=== PATIENT | female | born 1990 | race African-American/Black ===

== ENCOUNTER 2017-08-31 08:40 | Emergency (ER) | payer OTHER ==
[~2017-08-31] VITALS: Ht 165.1 cm; Wt 63.5 kg
[2017-08-31] MEDS ORDERED: NKM (08:56)
[2017-08-31 08:59] VITALS: BP 124/84
[2017-08-31 09:30] LABS: APPEARANCE,URINE CLEAR; BILIRUBIN, URINE NEGATIVE (NEGATIVE); COLOR,URINE PALE YELLOW; GLUCOSE, URINE (UA) NEGATIVE (NEGATIVE); KETONES,URINE NEGATIVE (NEGATIVE); LEUKOCYTE ESTERASE ,URINE 1+ (NEGATIVE); NITRITE,URINE NEGATIVE (NEGATIVE); PH,URINE 6 (4.5-8.0); PROTEIN,URINE NEGATIVE (NEGATIVE); UROBILINOGEN,URINE NORMAL MG/DL (0.0-1.0)
--- NOTE | 2017-08-31 09:48 | Emergency Room Report ---
History of Present Illness General Chief Complaint: Abdominal Pain Source: Patient Present Illness HPI [id number] who was on 08/18 was 14 weeks . Was evaluated at outside [facility], told she was having miscarriage. Intermittent passage of clots since. Currently mild vaginal bleeding and discomfort. Has not followed up with PMD or OB since 08/18 ER visit. Denies fever/chills, nausea/vomiting. beta hc at that time as well. Allergies: Coded Allergies: No Known Allergies (Unverified , 08/31/17) Patient History Past Medical History: none Past Surgical History: none Pertinent Family History: none Last Menstrual Period: 05/14/2017 Now: No : 3 Para: 2 Immunizations: UTD Reviewed Nursing Documentation: PMH: Agreed, PSxH: Agreed Nursing Documentation-PMH Past Medical History: No Stated History Review of Systems All Other Systems: negative except mentioned in HPI Physical Exam Vital Signs Date Time Temp Pulse Resp B/P (MAP) Pulse Ox O2 Delivery O2 Flow Rate FiO2 08/31/17 08:49 97.9 77 16 124/84 99 Room Air Sp02 EP Interpretation: reviewed, normal General Appearance: normal inspection, well appearing, no apparent distress, alert, GCS 15, non-toxic Head: normocephalic, atraumatic Eyes: bilateral eye PERRL, bilateral eye EOMI ENT: normal ENT inspection, hearing grossly normal, normal pharynx, no angioedema, normal voice, TMs + canals normal, uvula midline, moist mucus membranes Neck: normal inspection, full range of motion, supple, thyroid normal, no meningismus, no bony tend Respiratory: normal inspection, lungs clear, normal breath sounds, no rhonchi, no respiratory distress, no retraction, no accessory muscle use, no wheezing, speaking full sentences Cardiovascular #1: regular rate, rhythm, no edema, no JVD, normal capillary refill Gastrointestinal: normal inspection, normal bowel sounds, non tender, soft, no mass, no peritonitis, non-distended, no guarding, no hernia, no pulsatile mass Genitourinary: no CVA tenderness, other - Scant vaginal bleeding, dried blood in underwear. Exam done with RN present Musculoskeletal: normal inspection, back normal, normal range of motion, no calf tenderness, pelvis stable, Adrian's Sign negative Neurologic: normal inspection, alert, oriented x3, responsive, make ready worker III-XII nml as tested, motor strength/tone normal, cerebellar normal, normal gait, speech normal Psychiatric: normal inspection, judgement/insight normal, mood/affect normal, no suicidal/homicidal ideation, no delusions Skin: normal inspection, normal color, no rash Lymphatic: normal inspection, no adenopathy Medical Decision Making Diagnostic Impression: Primary Impression: Vaginal bleeding Additional Impression: Incomplete miscarriage ER Course Urine preg + Beta hcg + downtrending significantly UA: 10-15RBCs consistent with miscarriage Per verbal report from Radiology, likely "Findings may be related to inevitable or incomplete miscarriage. Differential considerations include cervical ectopic. Correlation with trended beta-hCG and short term interval followup ultrasound is recommended until diagnosis made. 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 Disposition: Patient is to be discharged to home. Patient is instructed to follow up with [employer] in 2-3 days Strict return precautions discussed with patient such as fever, chills, worsening/severe pain, nausea, vomiting, which may indicate severe illness. Patient verbalizes understanding and agrees with plan. Please note that this Emergency Department Report was dictated using [employer] plumbing technology software, occasionally this can lead to erroneous entry secondary to interpretation by the dictation equipment Last Vital Signs Date Time Temp Pulse Resp B/P (MAP) Pulse Ox O2 Delivery O2 Flow Rate FiO2 08/31/17 08:59 97.9 16 124/84 99 Room Air 08/31/17 08:49 77 Status: improved Disposition: HOME, SELF-CARE BRITTANY WASHINGTON M.D. Aug 31, 2017 09:48
[2017-08-31 10:33] LABS: EOSINOPHILS % (AUTO) 2.4 % (0.0-3.0); HEMATOCRIT 34.7 % (37.0-47.0); HEMOGLOBIN 11.4 G/DL (12.0-16.0); LYMPHOCYTES % (AUTO) 33.6 % (20.0-45.0); MEAN CORPUSCULAR VOLUME 87 FL (80-99); MONOCYTES % (AUTO) 4.6 % (1.0-10.0); NEUTROPHILS % (AUTO) 58.5 % (45.0-75.0); PLATELET COUNT 311 K/UL (150-450); RED BLOOD COUNT 3.99 M/UL (4.20-5.40); RED CELL DISTRIBUTION WIDTH 12.2 % (11.6-14.8); WHITE BLOOD COUNT 11.2 K/UL (4.8-10.8)
[2017-08-31 11:15] VITALS: BP 130/63
[2017-08-31 11:20] LABS: CALCIUM 9.3 MG/DL (8.5-10.1); CREATININE 0.6 MG/DL (0.55-1.30)
[2017-08-31 11:21] LABS: ALANINE AMINOTRANSFERASE 16 U/L (12-78); ALBUMIN 3.9 G/DL (3.4-5.0); ALBUMIN/GLOBULIN RATIO 1.1 (1.0-2.7); ALKALINE PHOSPHATASE 49 U/L (46-116); ANION GAP 7 mmol/L (5-15); ASPARTATE AMINO TRANSFERASE 18 U/L (15-37); BILIRUBIN,TOTAL 0.3 MG/DL (0.2-1.0); BLOOD UREA NITROGEN 9 mg/dL (7-18); CARBON DIOXIDE 27 MMOL/L (21-32); CHLORIDE 106 MMOL/L (98-107); POTASSIUM 3.7 MMOL/L (3.5-5.1); SODIUM 140 MMOL/L (136-145)
--- NOTE | 2017-08-31 11:35 | Diagnostic Imaging Report ---
Indication: Pain. Vaginal bleeding with clots. Quantitative beta-hCG pending at time of dictation. Technique: Grayscale and duplex Doppler imaging of the pelvis performed utilizing a transabdominal scan and endovaginal scan. Comparison: None Findings: Uterus measures 9.4 x 5.8 x 4.7 cm. Echogenic material with flow noted within the uterine cavity with some flow on color Doppler. In the lower uterine segment/cervix there is mixed echogenicity material measuring up to 1.5 cm in thickness. An anechoic structure measuring approximately 1.1 cm in transverse diameter is noted in the lower uterine segment. There may be question of a tiny yolk sac. Right ovary measures 2.3 x 1.8 x 1.4 cm/3 cc. Left ovary measures 2.4 x 2.2 x 1.5 cm/4.1 cc. No adnexal lesion identified. No evidence just ovarian torsion. Trace free fluid noted in the pelvis. Impression: Mixed echogenicity material noted in the endometrial cavity and cervix with some areas of flow. Questionable gestational sac in the lower uterine segment. Findings may be related to inevitable or incomplete miscarriage. Differential considerations include cervical ectopic. Correlation with trended beta-hCG and short term interval followup ultrasound is recommended until diagnosis made. [employer] MACHINE OPERATOR follow up recommended.
[2017-08-31 11:55] VITALS: BP 125/78
== END 2017-08-31 12:00 | disposition home or self-care (01) ==
LOC: EMR 09:50
DX: O03.4 Incomplete spontaneous abortion without complication (principal)
CPT/HCPCS: 36415; 76801; 80053; 81003; 81025; 84702; 85025; 86850; 86900; 86901; 99284

== ENCOUNTER 2018-03-17 14:22 | Emergency (ER) | payer SELFPAY ==
[~2018-03-17] VITALS: Ht 165.1 cm; Wt 62.1 kg
[~2018-03-17 14:22] MED LIST: NKM
[2018-03-17 14:31] VITALS: BP 118/78
--- NOTE | 2018-03-17 14:59 | Emergency Room Report ---
History of Present Illness General Chief Complaint: Pain Source: Patient Present Illness HPI 27-year-old female presents to the emergency department complaining of 9 out of 10 in severity pain mid chest/upper back that radiates anteriorly to the left side of her chest. Patient reports pain is worse with inspiration and when she lies flat. Patient states pain is slightly relieved with leaning forward. Patient denies recent illnesses such as viral infections or recent dental procedures. Patient denies IV drug use. Eyes recent travel or pertinent medical history other than a miscarriage earlier this year. Patient reports only familial pertinent history with cancer. She states that she is a smoker she smokes a red scaly she denies cough or wheezing. Denies trauma or fall. Denies palpitations, dizziness, syncope or headache. She reports several episodes of vomiting she estimates about 3. Patient states that pain occurred first and caused her to become nauseous and rest vomiting. Patient denies blood in the vomit. She denies black tarry stools. Allergies: Coded Allergies: No Known Allergies (Unverified , 08/31/17) Patient History Past Medical History: see triage record Past Surgical History: none Pertinent Family History: none Last Menstrual Period: 03/03/18 Now: No Reviewed Nursing Documentation: PMH: Agreed; PSxH: Agreed Nursing Documentation-PMH Past Medical History: No Stated History Review of Systems All Other Systems: negative except mentioned in HPI Physical Exam Vital Signs Date Time Temp Pulse Resp B/P (MAP) Pulse Ox O2 Delivery O2 Flow Rate FiO2 03/17/18 14:31 98.3 85 18 118/78 98 Room Air 98.3 Sp02 EP Interpretation: reviewed, normal General Appearance: no apparent distress, alert, GCS 15, non-toxic Head: normocephalic, atraumatic Eyes: bilateral eye normal inspection, bilateral eye PERRL ENT: hearing grossly normal, normal voice Neck: full range of motion Respiratory: chest non-tender, lungs clear, normal breath sounds, no respiratory distress, no wheezing, speaking full sentences, other - pain with inspiration Cardiovascular #1: regular rate, rhythm, no edema, no JVD, other - no obvious friction rub Gastrointestinal: normal bowel sounds, non tender, soft Rectal: deferred Genitourinary: normal inspection, no CVA tenderness Musculoskeletal: back normal, gait/station normal, normal range of motion, non- tender Neurologic: alert, oriented x3, responsive, motor strength/tone normal, sensory intact, speech normal, grossly normal Psychiatric: judgement/insight normal Skin: normal color, no rash, warm/dry, well hydrated Lymphatic: no adenopathy Medical Decision Making PA Attestation Dr. miranda is my supervising Physician whom patient management has been discussed with. Diagnostic Impression: Primary Impression: Nonspecific chest pain ER Course 27-year-old female presents to the emergency department complaining of 9 out of 10 in severity pain mid chest/upper back that radiates anteriorly to the left side of her chest. Patient reports pain is worse with inspiration and when she lies flat. Patient states pain is slightly relieved with leaning forward. Patient denies recent illnesses such as viral infections or recent dental procedures. Patient denies IV drug use. Eyes recent travel or pertinent medical history other than a miscarriage earlier this year. Patient reports only familial pertinent history with cancer. She states that she is a smoker she smokes a red scaly she denies cough or wheezing. Denies trauma or fall. Denies palpitations, dizziness, syncope or headache. She reports several episodes of vomiting she estimates about 3. Patient states that pain occurred first and caused her to become nauseous and rest vomiting. Patient denies blood in the vomit. She denies black tarry stools. Ddx considered but are not limited to AR, pneumonia, contusion, costochondritis , PE, ACS, Shoulder strain, Chest wall contusion. aortic dissection, pericarditis just to name a few Vital signs: are WNL, pt. is afebrile H&PE are most consistent with possible pericarditis will do further work up ORDERS: - EK BPM NSR -CBC: unremarkable -CMP: unremarkable -Troponin: WNL -D-Dimer: 0.4 WNL -Urine HCG: Negative CXR: Unremarkable -Bedside US: no obvious fluid accumulated in the pericardium ED INTERVENTIONS: - [place] PO DISCHARGE: At this time pt. is stable for d/c to home. Will provide printed patient care instructions, and any necessary prescriptions. Care plan and follow up instructions have been discussed with the patient prior to discharge. Labs Test 03/17/18 15:15 White Blood Count 12.7 K/UL (4.8-10.8) Red Blood Count 4.34 M/UL (4.20-5.40) Hemoglobin 11.9 G/DL (12.0-16.0) Hematocrit 37.4 % (37.0-47.0) Mean Corpuscular Volume 86 FL (80-99) Mean Corpuscular Hemoglobin 27.5 PG (27.0-31.0) Mean Corpuscular Hemoglobin Concent 31.9 G/DL (32.0-36.0) Red Cell Distribution Width 12.1 % (11.6-14.8) Platelet Count 309 K/UL (150-450) Mean Platelet Volume 6.4 FL (6.5-10.1) Neutrophils (%) (Auto) 57.7 % (45.0-75.0) Lymphocytes (%) (Auto) 34.8 % (20.0-45.0) Monocytes (%) (Auto) 5.8 % (1.0-10.0) Eosinophils (%) (Auto) 1.0 % (0.0-3.0) Basophils (%) (Auto) 0.7 % (0.0-2.0) D-Dimer 0.24 mg/L FEU (0.00-0.49) Urine HCG, Qualitative Negative (NEGATIVE) Sodium Level 141 MMOL/L (136-145) Potassium Level 3.7 MMOL/L (3.5-5.1) Chloride Level 104 MMOL/L (98-107) Carbon Dioxide Level 30 MMOL/L (21-32) Anion Gap 7 mmol/L (5-15) Blood Urea Nitrogen 10 mg/dL (7-18) Creatinine 0.7 MG/DL (0.55-1.30) Estimat Glomerular Filtration Rate > 60 mL/min (>60) Glucose Level 76 MG/DL (74-106) Calcium Level 9.4 MG/DL (8.5-10.1) Total Bilirubin 0.3 MG/DL (0.2-1.0) Aspartate Amino Transf (AST/SGOT) 13 U/L (15-37) Alanine Aminotransferase (ALT/SGPT) 18 U/L (12-78) Alkaline Phosphatase 60 U/L (46-116) Total Creatine Kinase 147 U/L (26-308) Troponin I 0.000 ng/mL (0.000-0.056) Total Protein 7.9 G/DL (6.4-8.2) Albumin 4.0 G/DL (3.4-5.0) Globulin 3.9 g/dL Albumin/Globulin Ratio 1.0 (1.0-2.7) Lipase 69 U/L (73-393) EKG Diagnostic Results EP Interpretation: Dr. Boone Rate: normal - 80 bpm Rhythm: NSR ST Segments: no acute changes ASA given to the pt in ED: No PA Scribe Text This Interpretation was scribed by DEBBIE Vincent. Chest X-Ray Diagnostic Results Chest X-Ray Diagnostic Results : Chest X-Ray Ordered: Yes # of Views/Limited/Complete: 2 View Indication: Chest Pain EP Interpretation: Yes PA Xray: Interpretation reviewed, by supervising MD, and agrees with findings. Interpretation: no consolidation, no effusion, no pneumothorax, no acute cardiopulmonary disease Impression: No acute disease Electronically Signed by: Mariana Vincent PA-C CT/MRI/US Diagnostic Results CT/MRI/US Diagnostic Results : Imaging Test Ordered: Bed Side Ultrasound Impression no evidence of pericarditis/ fluid around the heart. Last Vital Signs Date Time Temp Pulse Resp B/P (MAP) Pulse Ox O2 Delivery O2 Flow Rate FiO2 03/17/18 14:31 98.3 85 18 118/78 98 Room Air 98.2 Disposition: HOME, SELF-CARE Condition: Stable Scripts Ibuprofen* (MOTRIN*) 600 Mg Tablet 600 MG ORAL THREE TIMES A DAY, #30 TAB 0 Refills Prov: Mariana Vincent 03/17/18 Lidocaine (Lidoderm) 1 Each Adh..patch 1 PATCH TOPIC DAILY, #30 PATCH 0 Refills Patch(es) may remain in place for up to 12 hours in any 24-hour period. 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 may return sooner if symptoms have resolved. Return to Full Activity: Mar 27, 2018 Patient Instructions: Chest Wall Pain, Kytb-my-Mtre, Nonspecific Chest Pain, Maal-us-Wals Additional Instructions: Take medications as directed. Follow up with a Primary Care Provider in 3-5 days, even if your symptoms have resolved. --Please review list of primary care clinics, if you do not already have a primary care provider Return sooner to ED if new symptoms occur, or current symptoms become worse. Do not drink alcohol, drive, or operate heavy machinery while taking Robaxin as this may cause drowsiness. - Please note that this Emergency Department Report was dictated using [employer] aligning technology software, occasionally this can lead to erroneous entry secondary to interpretation by the dictation equipment. Mariana Vincent Mar 17, 2018 14:59
[2018-03-17] MEDS ORDERED: Norco 5mg/325mg tab ORAL ONE (15:00)
[2018-03-17 15:26] LABS: BASOPHILS % (AUTO) 0.7 % (0.0-2.0); HEMATOCRIT 37.4 % (37.0-47.0); HEMOGLOBIN 11.9 G/DL (12.0-16.0); LYMPHOCYTES % (AUTO) 34.8 % (20.0-45.0); MEAN CORPUSCULAR VOLUME 86 FL (80-99); MONOCYTES % (AUTO) 5.8 % (1.0-10.0); NEUTROPHILS % (AUTO) 57.7 % (45.0-75.0); PLATELET COUNT 309 K/UL (150-450); RED BLOOD COUNT 4.34 M/UL (4.20-5.40); RED CELL DISTRIBUTION WIDTH 12.1 % (11.6-14.8); WHITE BLOOD COUNT 12.7 K/UL (4.8-10.8)
[2018-03-17 15:34] LABS: ANION GAP 7 mmol/L (5-15); BLOOD UREA NITROGEN 10 mg/dL (7-18); CALCIUM 9.4 MG/DL (8.5-10.1); CARBON DIOXIDE 30 MMOL/L (21-32); CHLORIDE 104 MMOL/L (98-107); CREATININE 0.7 MG/DL (0.55-1.30); POTASSIUM 3.7 MMOL/L (3.5-5.1); SODIUM 141 MMOL/L (136-145)
[2018-03-17 15:40] LABS: ALANINE AMINOTRANSFERASE 18 U/L (12-78); ALKALINE PHOSPHATASE 60 U/L (46-116); ASPARTATE AMINO TRANSFERASE 13 U/L (15-37); BILIRUBIN,TOTAL 0.3 MG/DL (0.2-1.0); CREATINE KINASE 147 U/L (26-308)
--- NOTE | 2018-03-17 16:03 | Diagnostic Imaging Report ---
EXAM: XR Chest, 2 Views CLINICAL HISTORY: PAIN TECHNIQUE: Frontal and lateral views of the chest. COMPARISON: No relevant prior studies available. FINDINGS: Lungs: Unremarkable. The lungs appear clear. No focal consolidation. Pleural space: Unremarkable. The costophrenic angle are sharp. No visible pneumothorax. Heart: Unremarkable. No cardiomegaly. Mediastinum: Unremarkable. Bones/joints: Unremarkable. Soft tissues: 6 mm round radiodense metallic foreign body overlies the soft tissues anterior to the sternoclavicular junction. IMPRESSION: 1. 6 mm round radiodense metallic foreign body overlies the soft tissues anterior to the sternoclavicular junction. This is likely a necklace external to the patient however recommend clinical correlation. 2. Otherwise unremarkable exam.
[2018-03-17] MEDS ORDERED: ROBAXIN500 MG PO (16:29)
[2018-03-17] MEDS ORDERED: LIDODERM700 M1 TOPIC (16:29)
[2018-03-17] MEDS ORDERED: IBUPROFEN600 MG ORAL (16:29)
[2018-03-17] MEDS ORDERED: Ketorolac 30mg Inj IV ONE (16:30)
[2018-03-17 16:47] VITALS: BP 116/74
--- NOTE | 2018-03-23 00:57 | Cardiology Report ---
APPROVED REPORT EKG Measurement Heart [id number] Normal sinus rhythm Normal ECG
== END 2018-03-17 16:49 | disposition home or self-care (01) ==
LOC: EMR 14:50
DX: R07.9 Chest pain, unspecified (principal)
CPT/HCPCS: 36415; 71046; 80053; 81025; 82550; 83690; 84484; 85025; 85379; 93005; 96374; 99284; J1885

== ENCOUNTER 2018-04-21 19:38 | Emergency (ER) | payer SELFPAY ==
[~2018-04-21] VITALS: Ht 165.1 cm; Wt 59.0 kg
[~2018-04-21 19:38] MED LIST changes: +IBUPROFEN600 MG ORAL; +LIDODERM700 M1 TOPIC; +ROBAXIN500 MG PO
[2018-04-21 20:00] VITALS: BP 120/72
[2018-04-21] MEDS ORDERED: Ketorolac 30mg Inj IV ONE (20:15)
--- NOTE | 2018-04-21 20:23 | Emergency Room Report ---
History of Present Illness General Chief Complaint: Abdominal Pain Source: Patient Present Illness HPI Patient presents with nausea vomiting diarrhea and lower abdominal pain. She feels that her uterus is pressure on it. She also feels a radiating towards her rectum. She's not vomiting blood. The stools been yellow in color. She's been able to keep down liquids. She denies any fevers or chills. There's no upper respiratory component. 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 The pain is worsened with that. Her period was the beginning of this month and so the hand. She doesn't believe she is at this time. She sets some problems with upper back pain from muscle spasm. Allergies: Coded Allergies: No Known Allergies (Unverified , 08/31/17) Patient History Past Medical History: see triage record Social History: Reports: smoking, alcohol use; Denies: drug use Social History Narrative has 5 yo at home Last Menstrual Period: 03/31/2018 Now: No : 3 Para: 2 Reviewed Nursing Documentation: PMH: Agreed; PSxH: Agreed Nursing Documentation-PMH Hx Cardiac Problems: No - miscarriage Review of Systems All Other Systems: negative except mentioned in HPI Physical Exam Vital Signs Date Time Temp Pulse Resp B/P (MAP) Pulse Ox O2 Delivery O2 Flow Rate FiO2 04/21/18 19:55 98.4 80 15 119/70 97 Room Air 98.4 Sp02 EP Interpretation: reviewed, normal General Appearance: well appearing, no apparent distress, GCS 15 Head: normocephalic Eyes: bilateral eye normal inspection, bilateral eye PERRL ENT: moist mucus membranes Neck: supple Respiratory: lungs clear, normal breath sounds Cardiovascular #1: regular rate, rhythm Cardiovascular #2: 2+ radial (R) Gastrointestinal: normal inspection, normal bowel sounds, no mass, non- distended Genitourinary: no CVA tenderness Musculoskeletal: back normal, gait/station normal, normal range of motion Neurologic: alert, oriented x3 Skin: normal inspection, warm/dry Medical Decision Making Diagnostic Impression: Primary Impression: Gastroenteritis Additional Impression: Suprapubic pain ER Course Patient presents with lower abdominal pain, nausea vomiting diarrhea. Differential includes early , gastroenteritis, ectopic, bowel obstruction, fibroids amongst others. Evaluation will be with labs. Treatment will be with IV hydration and Toradol with Tylenol. Laboratory Tests Test 04/21/18 20:05 White Blood Count 12.5 K/UL (4.8-10.8) H Red Blood Count 4.48 M/UL (4.20-5.40) Hemoglobin 12.4 G/DL (12.0-16.0) Hematocrit 37.9 % (37.0-47.0) Mean Corpuscular Volume 84 FL (80-99) Mean Corpuscular Hemoglobin 27.6 PG (27.0-31.0) Mean Corpuscular Hemoglobin Concent 32.6 G/DL (32.0-36.0) Red Cell Distribution Width 11.5 % (11.6-14.8) L Platelet Count 342 K/UL (150-450) Mean Platelet Volume 6.6 FL (6.5-10.1) Neutrophils (%) (Auto) 43.1 % (45.0-75.0) L Lymphocytes (%) (Auto) 48.0 % (20.0-45.0) H Monocytes (%) (Auto) 6.4 % (1.0-10.0) Eosinophils (%) (Auto) 1.4 % (0.0-3.0) Basophils (%) (Auto) 1.2 % (0.0-2.0) Prothrombin Time 11.7 SEC (9.30-11.50) H Prothrombin Time INR 1.1 (0.9-1.1) PTT 30 SEC (23-33) Urine Color Yellow Urine Appearance Clear Urine pH 6.5 (4.5-8.0) Urine Specific [place] 1.015 (1.005-1.035) Urine Protein 1+ (NEGATIVE) H Urine Glucose (UA) Negative (NEGATIVE) Urine Ketones Negative (NEGATIVE) Urine Blood Negative (NEGATIVE) Urine Nitrite Negative (NEGATIVE) Urine Bilirubin Negative (NEGATIVE) Urine Urobilinogen 1 MG/DL (0.0-1.0) H Urine Leukocyte Esterase 1+ (NEGATIVE) H Urine RBC 0-2 /HPF (0 - 2) Urine WBC 0-2 /HPF (0 - 2) Urine Squamous Epithelial Cells Few /LPF (NONE/OCC) Urine Bacteria Few /HPF (NONE) Urine Mucus Moderate /LPF (NONE/OCC) H Urine HCG, Qualitative Negative (NEGATIVE) Sodium Level 139 MMOL/L (136-145) Potassium Level 3.9 MMOL/L (3.5-5.1) Chloride Level 104 MMOL/L (98-107) Carbon Dioxide Level 25 MMOL/L (21-32) Anion Gap 10 mmol/L (5-15) Blood Urea Nitrogen 15 mg/dL (7-18) Creatinine 0.8 MG/DL (0.55-1.30) Estimate Glomerular Filtration Rate > 60 mL/min (>60) Glucose Level 93 MG/DL (74-106) Calcium Level 9.6 MG/DL (8.5-10.1) Total Bilirubin 0.3 MG/DL (0.2-1.0) Aspartate Amino Transferase (AST) 18 U/L (15-37) Alanine Aminotransferase (ALT) 8 U/L (12-78) L Alkaline Phosphatase 64 U/L (46-116) Total Protein 8.2 G/DL (6.4-8.2) Albumin 4.1 G/DL (3.4-5.0) Globulin 4.1 g/dL Albumin/Globulin Ratio 1.0 (1.0-2.7) Lipase 64 U/L (73-393) L Status: improved Disposition: HOME, SELF-CARE Condition: Improved Referrals: NOT CHOSEN IPA/,REFERRING (PCP) Isaac Valdovinos M.D. Apr 21, 2018 20:23
[2018-04-21 20:28] LABS: APPEARANCE,URINE CLEAR; BILIRUBIN, URINE NEGATIVE (NEGATIVE); GLUCOSE, URINE (UA) NEGATIVE (NEGATIVE); KETONES,URINE NEGATIVE (NEGATIVE); LEUKOCYTE ESTERASE ,URINE 1+ (NEGATIVE); NITRITE,URINE NEGATIVE (NEGATIVE); PH,URINE 6.5 (4.5-8.0); PROTEIN,URINE 1+ (NEGATIVE); UROBILINOGEN,URINE 1 MG/DL (0.0-1.0)
[2018-04-21 20:33] LABS: BASOPHILS % (AUTO) 1.2 % (0.0-2.0); EOSINOPHILS % (AUTO) 1.4 % (0.0-3.0); HEMATOCRIT 37.9 % (37.0-47.0); HEMOGLOBIN 12.4 G/DL (12.0-16.0); MEAN CORPUSCULAR VOLUME 84 FL (80-99); MONOCYTES % (AUTO) 6.4 % (1.0-10.0); NEUTROPHILS % (AUTO) 43.1 % (45.0-75.0); PLATELET COUNT 342 K/UL (150-450); RED BLOOD COUNT 4.48 M/UL (4.20-5.40); RED CELL DISTRIBUTION WIDTH 11.5 % (11.6-14.8); WHITE BLOOD COUNT 12.5 K/UL (4.8-10.8)
[2018-04-21 20:36] LABS: ANION GAP 10 mmol/L (5-15); BLOOD UREA NITROGEN 15 mg/dL (7-18); CALCIUM 9.6 MG/DL (8.5-10.1); CARBON DIOXIDE 25 MMOL/L (21-32); CHLORIDE 104 MMOL/L (98-107); CREATININE 0.8 MG/DL (0.55-1.30); POTASSIUM 3.9 MMOL/L (3.5-5.1); SODIUM 139 MMOL/L (136-145)
[2018-04-21 20:37] LABS: COLOR,URINE YELLOW
[2018-04-21 20:41] LABS: ALANINE AMINOTRANSFERASE 8 U/L (12-78); ALBUMIN 4.1 G/DL (3.4-5.0); ALKALINE PHOSPHATASE 64 U/L (46-116); ASPARTATE AMINO TRANSFERASE 18 U/L (15-37); BILIRUBIN,TOTAL 0.3 MG/DL (0.2-1.0)
[2018-04-21 20:58] LABS: INR 1.1 (0.9-1.1)
[2018-04-21] MEDS ORDERED: IBUPROFEN600 MG ORAL (22:03)
[2018-04-21] MEDS ORDERED: ONDANSETRON ODT4 MG BC (22:03)
[2018-04-21] MEDS ORDERED: TRAMADOL HCL50 MG ORAL (22:03)
[2018-04-21 22:34] VITALS: BP 118/70
== END 2018-04-21 22:51 | disposition home or self-care (01) ==
LOC: EMR 20:05
DX: K52.9 Noninfective gastroenteritis and colitis, unspecified (principal); R10.2 Pelvic and perineal pain
CPT/HCPCS: 36415; 80053; 81003; 81025; 83690; 85025; 85610; 85730; 96361; 96374; 99284; J1885

== ENCOUNTER 2018-05-29 22:43 | Emergency (ER) | payer MEDICAID ==
[~2018-05-29] VITALS: Ht 165.1 cm; Wt 59.0 kg
[~2018-05-29 22:43] MED LIST changes: +ONDANSETRON ODT4 MG BC; +TRAMADOL HCL50 MG ORAL
[2018-05-29 23:24] VITALS: BP 130/89
[2018-05-29] MEDS ORDERED: AMOXICILLIN500 MG ORAL (23:24)
[2018-05-29] MEDS ORDERED: ROBITUSSIN NIG237 ML PO (23:24)
[2018-05-29] MEDS ORDERED: IBUPROFEN600 MG ORAL (23:24)
--- NOTE | 2018-05-29 23:29 | Emergency Room Report ---
History of Present Illness General Chief Complaint: Flu Like Symptoms Source: Patient Present Illness HPI Patient present with complaints of cough and congestion sore throat Body ache ongoing for the past 4 days Denies any posterior neck pain denies any photophobia Denies any chest pain denies any vomiting Patient feels increased pressure in her sinuses Denies any abdominal pain and eyes any focal weakness Subjective fever at home however improved with medication Allergies: Coded Allergies: No Known Allergies (Unverified , 08/31/17) Patient History Past Medical History: see triage record Pertinent Family History: none Last Menstrual Period: 04/14/18 Now: No Reviewed Nursing Documentation: PMH: Agreed; PSxH: Agreed Nursing Documentation-PMH Past Medical History: No Stated History Hx Cardiac Problems: No - miscarriage Review of Systems All Other Systems: negative except mentioned in HPI Physical Exam Vital Signs Date Time Temp Pulse Resp B/P (MAP) Pulse Ox O2 Delivery O2 Flow Rate FiO2 05/29/18 23:09 98.2 87 18 130/89 92 Room Air Sp02 EP Interpretation: reviewed, normal General Appearance: well appearing, no apparent distress Head: normocephalic, atraumatic Eyes: bilateral eye PERRL, bilateral eye EOMI ENT: normal pharynx, normal voice, pharyngeal erythema Neck: full range of motion, supple Respiratory: chest non-tender, lungs clear Cardiovascular #1: regular rate, rhythm, no edema Gastrointestinal: non tender, soft, no mass Genitourinary: no CVA tenderness Musculoskeletal: normal inspection Neurologic: alert, oriented x3, responsive Skin: normal color, no rash Lymphatic: no adenopathy Medical Decision Making Diagnostic Impression: Primary Impression: pharyngitis ER Course Given the patient's history and presentation multiple differentials are considered, consideration for flulike symptoms is made, pneumonia Patient's throat exam does show erythematous findings raising the question of bacterial infection Patient is also more than 2 days out with the symptoms therefore anti-flu medication is not appropriate patient treated conservatively,Does not appear septic or toxic and will return with any changes Last Vital Signs Date Time Temp Pulse Resp B/P (MAP) Pulse Ox O2 Delivery O2 Flow Rate FiO2 05/29/18 23:09 98.2 87 18 130/89 92 Room Air Status: unchanged Disposition: HOME, SELF-CARE Condition: Stable Scripts Dextromethorphan Hb/Doxylamine (ROBITUSSIN NIGHTTIME COUGH DM) 237 Ml Liquid 10 ML PO QHS for 7 Days, ML Prov: Ricardo Lyons DO 05/29/18 Amoxicillin* (AMOXIL*) 500 Mg Capsule 500 MG ORAL THREE TIMES A DAY, #21 CAP Prov: Ricardo Lyons DO 05/29/18 Ibuprofen* (MOTRIN*) 600 Mg Tablet 600 MG ORAL Q8H PRN for For Pain, #20 TAB 0 Refills Prov: Ricardo Lyons DO 05/29/18 Patient Instructions: Pharyngitis, [id number] Additional Instructions: Patient is provided with the discharge instructions notified to follow up with primary doctor in the next 2-3 days otherwise return to the er with any worsening symptoms. Please note that this report is being documented using [employer] technology. This can lead to erroneous entry secondary to incorrect interpretation by the dictating instrument. Ricardo Lyons DO May 29, 2018 23:29
== END 2018-05-29 23:45 | disposition home or self-care (01) ==
LOC: EMR 22:59
DX: J02.9 Acute pharyngitis, unspecified (principal)
CPT/HCPCS: 99283

== ENCOUNTER 2018-09-14 18:54 | Emergency (ER) | payer MEDICAID ==
[~2018-09-14] VITALS: Ht 165.1 cm; Wt 58.1 kg
[~2018-09-14 18:54] MED LIST changes: +AMOXICILLIN500 MG ORAL; +ROBITUSSIN NIG237 ML PO
--- NOTE | 2018-09-14 19:17 | NUR ---
ED Nurse Note: pt went for US.
--- NOTE | 2018-09-14 19:20 | NUR ---
ED Nurse Note: Pt arrived from Home, c/o vaginal bleeding today. Last perieod 06/17/2018.
--- NOTE | 2018-09-14 20:00 | NUR ---
ED Nurse Note: pt returned from US. blood sent to Lab .
[2018-09-14 20:32] LABS: BASOPHILS % (AUTO) 0.9 % (0.0-2.0); EOSINOPHILS % (AUTO) 0.8 % (0.0-3.0); HEMATOCRIT 34.4 % (37.0-47.0); HEMOGLOBIN 11.6 G/DL (12.0-16.0); LYMPHOCYTES % (AUTO) 25.9 % (20.0-45.0); MEAN CORPUSCULAR VOLUME 84 FL (80-99); MONOCYTES % (AUTO) 4.1 % (1.0-10.0); NEUTROPHILS % (AUTO) 68.4 % (45.0-75.0); PLATELET COUNT 333 K/UL (150-450); RED BLOOD COUNT 4.08 M/UL (4.20-5.40); RED CELL DISTRIBUTION WIDTH 11.5 % (11.6-14.8); WHITE BLOOD COUNT 16.2 K/UL (4.8-10.8)
[2018-09-14 20:57] LABS: APPEARANCE,URINE SLIGHTLY CLOUDY; BILIRUBIN, URINE NEGATIVE (NEGATIVE); GLUCOSE, URINE (UA) NEGATIVE (NEGATIVE); KETONES,URINE 3+ (NEGATIVE); LEUKOCYTE ESTERASE ,URINE NEGATIVE (NEGATIVE); NITRITE,URINE NEGATIVE (NEGATIVE); PH,URINE 6 (4.5-8.0); PROTEIN,URINE 2+ (NEGATIVE); UROBILINOGEN,URINE NORMAL MG/DL (0.0-1.0)
[2018-09-14 21:03] LABS: COLOR,URINE YELLOW
--- NOTE | 2018-09-14 22:09 | Emergency Room Report ---
History of Present Illness General Chief Complaint: Complications Source: Patient Present Illness Allergies: Coded Allergies: No Known Allergies (Unverified , 08/31/17) Patient History Past Medical History: see triage record Past Surgical History: none Pertinent Family History: none Last Menstrual Period: 06/17/2018 Now: Yes : 2 Para: 0 Nursing Documentation-[facility] Past Medical History: No Stated History Physical Exam Vital Signs Date Time Temp Pulse Resp B/P (MAP) Pulse Ox O2 Delivery O2 Flow Rate FiO2 09/14/18 19:09 98.4 96 16 115/75 97 Room Air Medical Decision Making Diagnostic Impression: Primary Impression: Vaginal bleeding before 22 weeks gestation Additional Impression: Threatened miscarriage in early Last Vital Signs Date Time Temp Pulse Resp B/P (MAP) Pulse Ox O2 Delivery O2 Flow Rate FiO2 09/14/18 19:09 98.4 96 16 115/75 97 Room Air Status: unchanged Disposition: HOME, SELF-CARE Condition: Stable - ON BED REST, with close OBGYN or ED follow up within 24-48 hours Referrals: NOT CHOSEN IPA/MD,REFERRING (PCP) Patient Instructions: Vaginal Bleeding During , First Trimester, Easy- to-Read Additional Instructions: Until cleared by your OBGYN, you are to be on complete bed rest, until OBGYN has officially determined that there is no longer a threat of miscarriage. Take medications as directed. Follow up with an OBGYN within 24-48 hours, even if your symptoms have resolved. Return sooner to the ED if bleeding becomes worse, you feel dizzy/ light headed , new symptoms occur, or any of your current symptoms become worse. - Please note that this Emergency Department Report was dictated using [employer] technology software, occasionally this can lead to erroneous entry secondary to interpretation by the dictation equipment. Mariana Vincent Sep 14, 2018 22:09
[2018-09-14] MEDS ORDERED: TYLENOL EXTRA500 MG ORAL (22:10)
[2018-09-14 22:21] VITALS: BP 116/70
[2018-09-14] MEDS ORDERED: LIDODERM700 M1 TOPIC (22:21)
--- NOTE | 2018-09-14 22:21 | NUR ---
ED Nurse Note: Pt cleared to be d/c per ER provider, pt discharge instruction with prescription provided per ERMD, pt education done via discussion and handout, pt advised to follow up with pcp or return to ED, pt i/v d/c and wrist band removed, dressing applied, pt verbalized understanding and agrees with plan, pt accompanied by aunt, all belongings left with pt, pt ambulatory w/ steady gait, vss, airway intact, resp even and unlabored.
== END 2018-09-14 22:21 | disposition home or self-care (01) ==
LOC: EMR 19:18
DX: O20.0 Threatened abortion (principal); Z3A.22 22 weeks gestation of pregnancy
CPT/HCPCS: 36415; 76801; 76830; 81003; 84702; 85025; 86900; 86901; 99284

== ENCOUNTER 2020-09-09 15:46 | Emergency (ER) | payer MEDICAID ==
[~2020-09-09] VITALS: Ht 165.1 cm; Wt 59.0 kg
[~2020-09-09 15:46] MED LIST changes: +TYLENOL EXTRA500 MG ORAL
[2020-09-09 15:55] VITALS: BP 128/80
[2020-09-09 16:00] VITALS: BP 128/80
[2020-09-09] MEDS ORDERED: NIZORAL 2% C1 APPLIC TOPIC (16:01)
--- NOTE | 2020-09-09 16:05 | Emergency Room Report ---
History of Present Illness General Chief Complaint: Skin Rash/Abscess Source: Patient Present Illness HPI Patient is a 30-year-old female denies any significant past medical history who presents to the ER complaining of rash. She states it looks like ringworm's. She states that it started about 4 days ago. She states that it is on her neck face and arms. She does not know how she got it. She denies any fever or chills. She is not taking any medications for it. Allergies: Coded Allergies: No Known Allergies (Unverified , 08/31/17) COVID-19 Screening Contact w/high risk pt: No Experienced COVID-19 symptoms?: No COVID-19 Testing performed PEANUT [employer]TER MA[employer]ER: No Patient History Last Menstrual Period: 3 days ago Now: No Reviewed Nursing Documentation: PMH: Agreed; PSxH: Agreed Nursing Documentation-PMH Past Medical History: No History, Except For Hx Cardiac Problems: No - miscarriage Review of Systems All Other Systems: negative except mentioned in HPI Physical Exam Vital Signs Date Time Temp Pulse Resp B/P (MAP) Pulse Ox O2 Delivery O2 Flow Rate FiO2 09/09/20 15:49 98.1 90 18 128/80 (96) 96 Room Air Sp02 EP Interpretation: reviewed, normal General Appearance: no apparent distress, alert, GCS 15, non-toxic Head: normocephalic, atraumatic Eyes: bilateral eye normal inspection, bilateral eye PERRL ENT: hearing grossly normal, normal pharynx, no angioedema, normal voice Neck: full range of motion, supple/symm/no masses Respiratory: chest non-tender, lungs clear, normal breath sounds, speaking full sentences Cardiovascular #1: regular rate, rhythm, no edema Gastrointestinal: normal bowel sounds, non tender, soft, non-distended, no guarding, no rebound Rectal: deferred Genitourinary: no CVA tenderness Musculoskeletal: normal range of motion Neurologic: public relations director III-XII nml as tested, oriented x3 Psychiatric: no suicidal/homicidal ideation Skin: other - Circular lesions to face neck bilateral arms with central clearing dry scaly Lymphatic: no adenopathy Medical Decision Making Diagnostic Impression: Primary Impression: Tinea versicolor ER Course Patient given prescription for ketoconazole. After discussing risks and benefits of further diagnostics, treatment plans, as well as indications for and risks of admission, the patient is agreeable to being discharged home. I have explained that their evaluation and treatment in the emergency department today is an important step towards them achieving better health but that their evaluation today is not intended to replace further evaluation and treatment by a physician in their local clinic. I have explained that while the current findings suggest no immediate life threatening emergency they will require further evaluation and treatment by a physician of their choice in their area. They understand that it will be necessary for them to review the final reports of their ED visit with their clinic physician. We have reviewed indications for return to the Emergency Department. I have explained that additional time may need to pass and/or additional testing as an outpatient may be necessary before a definitive diagnosis can be made. They tell me they are willing to follow up as instructed within the timeframe I recommend. They appear to understand what we discussed. Additionally they understand that if they are unable to be seen by an outpatient physician they are welcome, and in fact should, return to the Emergency Department for a repeat evaluation. The patient is stable at time of discharge. Last Vital Signs Date Time Temp Pulse Resp B/P (MAP) Pulse Ox O2 Delivery O2 Flow Rate FiO2 09/09/20 15:49 98.1 90 18 128/80 (96) 96 Room Air Disposition: HOME, SELF-CARE Condition: Stable Scripts Ketoconazole (Ketoconazole) 15 Gm Cream..g. 1 APPLIC TOPIC BID for 14 Days, APPLIC Prov: Georgia Mcknight M.D. 09/09/20 Referrals: [facility] Patient Instructions: Tinea Versicolor, [id number] Additional Instructions: The patient was provided with discharge instructions, notified to follow-up with a primary care doctor and or specialist in the next 24-48 hours, and to return to the ED if they have worsening of their symptoms. Please note that this report is being documented using [employer] technology. This can lead to erroneous entry secondary to incorrect interpretation by the dictating instrument. Georgia Mcknight M.D. Sep 09, 2020 16:05
== END 2020-09-09 18:52 | disposition home or self-care (01) ==
LOC: EMR 15:56
DX: B36.0 Pityriasis versicolor (principal)
CPT/HCPCS: 99282